=== PATIENT | male | born 2000 | race Caucasian/White ===

== ENCOUNTER 2020-11-12 10:35 | Emergency (ER) | payer OTHER, SELFPAY ==
[2020-11-12 10:39] VITALS: PULSE 77; RESP 16; TEMP 36.5; O2SAT 100
[2020-11-12 10:49] VITALS: BP 126/74
--- NOTE | 2020-11-12 10:53 | W.ED.GENAD ---
Discharge Plan Disposition Patient Disposition: HOME Condition: Improving Discharge Details Clinical Impression: Toxic effect of alcohol Primary Care Provider: Sudha,Local ED Provider: [place] Home Meds and New Rx's Prescriptions: Continued dextroamphetamine-amphetamine [Adderall] 10 mg Tablet 10 mg PO DAILY PRNRF: 0 Discharge Instructions Additional Instructions: Continue small, frequent sips of fluids so that you maintain good hydration today. Limit use of alcohol in the future. May use the provided Zofran every 4 hours as needed for nausea. Return or see nearest health care provider for any acute concerns. Medical Decision Making 19-year-old male presents from outpatient setting, states he was on a ski trip and drank too much alcohol last night, began vomiting early in the morning and is been unable to take liquids or solids by mouth. No bloody emesis, no fall or injury, he is an otherwise healthy 19-year-old. Patient is afebrile and has unremarkable vital signs. IV access established, screening laboratories to rule out metabolic derangement are obtained, patient given fluids, antiemetic, ketorolac. Patient does have slight leukocytosis and anion gap, likely due to vomiting and dehydration. Labs are otherwise reassuring. He is improved following 2 L of fluid, I will discharge him with some Zofran for home. He understands to limit alcohol intake in the future. Lab Data Lab results reviewed: Yes I reviewed the patient's lab results. Labs: Laboratory Results - last 24 hr 11/12/20 11/12/20 10:55 10:55 WBC 13.86 H RBC 4.95 Hgb 15.1 Hct 43.0 MCV 86.9 MCH 30.5 MCHC 35.1 RDW 11.9 Plt Count 280 MPV 9.1 Immature Gran % 0.4 Neutrophils % 90.5 Lymphocytes % 6.2 Monocytes % 2.7 Eosinophils % 0.0 Basophils % 0.2 Nucleated RBC % 0 Absolute Neutrophils 12.54 H Absolute Lymphocytes 0.86 L Absolute Monocytes 0.37 Absolute Eosinophils 0.00 Absolute Basophils 0.03 Sodium 140 Potassium 3.8 Chloride 101 Carbon Dioxide 24.0 Anion Gap 15.0 H BUN 21 H Creatinine 1.0 Estimated GFR/1.73 m2 >= 60.00 Glucose 89 Calcium 9.5 Total Bilirubin 1.1 H AST 27 ALT 34 Alkaline Phosphatase 121 H Total Protein 8.9 H Albumin 5.0 Ethyl Alcohol < 3.0 HPI General Mode of arrival: ambulatory. Date/Time Provider Initiated Documentation: 11/12/20 10:37. Limitations to Documentation: no limitations. Information obtained by: patient. History of Present Illness 19 year old M presents to the emergency department with the chief complaint of Vomiting after too much alcohol, described as moderate, and is localized to the abdomen. Patient reports no radiation. Patient started experiencing this hour(s) and it has been intermittent. No relieving factors improve symptom(s), Other factors that worsen symptoms (Fluids) . Patient notes loss of appetite and nausea/vomiting; denies fever/chills and headaches. Patient did receive the following treatments prior to arrival, none Related Data Home Medications Medication Instructions Recorded Confirmed dextroamphetamine-amphetamine 10 mg PO DAILY PRN 11/12/20 11/12/20 [Adderall] Allergies Allergy/AdvReac Type Severity Reaction Status Date / Time No Known Allergies Allergy Unverified 11/12/20 10:42 General Stated Complaint: Nausea/Vomit/Diar DELVIN: 3 Review of Systems Narrative: 6 systems reviewed and otherwise negative [facility] Social History Smoking/Tobacco Use Status: Never Smoking risk assessment performed?: Yes Alcohol Intake: current Alcohol Intake frequency: holidays/special occasions only Alcohol type: hard liquor Drug use: Occasionally Substance use type: marijuana Do you feel safe at home: Yes Do you feel safe in your relationship?: Yes Exam Narrative Exam Narrative: GEN: awake, alert, oriented 3. Pleasant, well groomed, interactive. HEAD: Normocephalic, atraumatic ENT: Mucous membranes dry, oropharynx unremarkable, External ear exam unremarkable EYES: PERRL, EOMI NECK: Full ROM, no VINCENZO, no menigismus CHEST/RESP: Nontender, clear to auscultation bilateral, no wheeze/rhonchi/rales CARDIOVASCULAR: RRR, no murmur, rub mercedes. 2+ Rad pulse bilateral ABDOMEN: Soft, nontender, no mass. +Bowel sounds EXT: Full ROM, no edema, no rash Neuro: Grossly normal neurologic exam, conversant, interactive. Psych: Speech fluent, thoughts congruent, affect normal Course Vital Signs Vital signs: Vital Signs Temperature 36.5 C 11/12/20 10:39 Pulse 77 11/12/20 10:39 Respiratory Rate 16 03/21/21 10:39 Pulse Oximetry 100 11/12/20 10:39 Temperature 36.5 C 11/12/20 10:39 Temperature Source Skin 11/12/20 10:39 Pulse 77 11/12/20 10:39 Respiratory Rate 16 11/12/20 10:39 Respiratory Effort 11/12/20 10:42 Blood Pressure 126/74 11/12/20 10:49 Blood Pressure Position Sitting 11/12/20 10:39 Pulse Oximetry 100 11/12/20 10:39 Oxygen Delivery Method Room Air 11/12/20 10:39 Oxygen Flow Rate 0 11/12/20 10:39
[2020-11-12] MEDS: Normal Saline Flush 10 ML SYR IVP (10:55)
[2020-11-12] MEDS: Normal Saline 1,000 ML 1000 ML IV ×2 (10:55→11:40)
[2020-11-12 11:05] LABS: Abs Immature Grans 0.05 10^3/uL (0.0-0.06); Absolute Basophil Count 0.03 10^3/uL (0.0-0.2); Absolute Lymphocyte Count 0.86 10^3/uL (1.2-3.4); Absolute Monocyte Count 0.37 10^3/uL (0.1-0.8); Basophils % 0.2; HGB 15.1 g/dL (13.5-17.5); Immature Grans % 0.4; Lymphocytes % 6.2; MCH 30.5 pg (27.0-33.0); MCHC 35.1 % (32.0-36.0); MCV 86.9 fL (80-95); MPV 9.1 fL (8.0-11.0); Monocytes % 2.7; Neutrophils % 90.5; Nucleated RBC 0 %; Platelet Count 280 10^3/uL (130-400); RBC 4.95 10^6/uL (4.36-5.78); RDW 11.9 % (11.8-14.1); RDW-SD 38.2 fL; WBC 13.86 10^3/uL (4.4-10.8)
[2020-11-12 11:09] LABS: Absolute Neutrophil Count 12.54 10^3/uL (1.2-6.7)
[2020-11-12] MEDS: Ondansetron 4 MG/2 ML VIAL IVP (11:09)
[2020-11-12] MEDS: Ketorolac 15 MG/ML VIAL IVP (11:10)
[2020-11-12 11:18] LABS: ALT 34 U/L (16-63); AST 27 U/L (15-37); Alkaline Phosphatase 121 U/L (46-116); BUN 21 mg/dL (7-18); Bilirubin, Total 1.1 mg/dL (0.2-1.0); Calcium 9.5 mg/dL (8.5-10.1); Chloride 101 mmol/L (98-107); Glucose 89 mg/dL (74-106); Potassium 3.8 mmol/L (3.5-5.1); Sodium 140 mmol/L (136-145); Total Protein 8.9 g/dL (6.4-8.2)
[2020-11-12 11:27] LABS: ETHANOL BLOOD < 3.0 mg/dL (<3)
[2020-11-12] MEDS: Ondansetron O.D.T. 4 MG TABEF, 3 TABS/BTL PO (11:46)
[2020-11-12 14:06] VITALS: BP 122/68; PULSE 93; RESP 18; TEMP 36.6; O2SAT 97
== END 2020-11-12 14:20 | disposition home or self-care (01) ==
LOC: ER 11:49
PROVIDERS: Emergency Provider Emergency Medicine
DX: T51.0X1A Toxic effect of ethanol, accidental (unintentional), initial encounter (principal); R11.2 Nausea with vomiting, unspecified
CPT/HCPCS: 80053; 96361; 96374; 96375; 99284; 80320; 85025; 99283; J1885; J2405